=== PATIENT | male | born 1965 | race Caucasian/White ===

== ENCOUNTER 2016-12-13 12:15 | Emergency (ER) | payer OTHER | END 2016-12-13 13:04 | disposition home or self-care (01) | LOC: ER 12:15 | DX: G47.00 Insomnia, unspecified (principal); F51.4 Sleep terrors [night terrors]; F17.210 Nicotine dependence, cigarettes, uncomplicated; Z79.899 Other long term (current) drug therapy; Z88.0 Allergy status to penicillin ==